=== PATIENT | female | born 1995 | race Caucasian/White ===

== ENCOUNTER 2023-08-26 07:30 | Inpatient (IN) ==
--- NOTE | 2023-08-12 08:49 | Anesthesiology Consultation ---
Date of Service August 12, 2023 Assessment & Plan (1) Encounter for pre-operative examination: - Per dough scaler and mixer on 08/12/23: No known infectious disease contacts, current infectious disease symptoms in past 10 days or COVID positive test result in the past 30 days. 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 History Surgery Operation Date: 08/26/23 08:45 Proposed Procedures p Section (Delivery of Baby Through Abdominal Incision) - Joann Ovalle MD s With Bilateral Tubal Ligation - Joann Ovalle MD Height/Weight Height: 4 ft 10 in Weight: 66.224 kg Allergies Allergy/AdvReac Type Severity Reaction Status Date / Time sertraline AdvReac Intermediate "zoned out" Verified 08/12/23 08:03 Medications Home Medications Medication Instructions Recorded Confirmed Last Taken bupropion HCl 300 mg 24 hr tablet, 300 mg PO QAM 06/26/22 08/12/23 06/22/23 extended release levothyroxine 75 mcg tablet 75 mcg PO DAILYBB 06/26/22 08/12/23 06/22/23 aripiprazole 5 mg tablet 5 mg PO QAM 01/18/23 08/12/23 06/22/23 fluvoxamine 50 mg tablet 50 mg PO DAILY 01/18/23 08/12/23 06/22/23 vit 168-iron 27 mg-folic 1 cap PO DAILY 01/18/23 08/12/23 06/22/23 acid 800 mcg-omega3 235 mg capsule (One-A-Day -1) ondansetron HCl 4 mg tablet 4 mg PO Q6H nausea and vomiting 04/28/23 08/12/23 Unknown #20 tabs amoxicillin 500 mg capsule 500 mg PO BID 08/04/23 08/12/23 Unknown Past Medical History Medical History (Updated 08/12/23 @ 08:44 by Radha Lay PA-C) Anxiety Bipolar disorder Depression History of COVID-08 Feb 2023 Hypothyroidism Past Family History Family History Father Diabetes Past Surgical History Surgical History Hx of section Social History Smoking Status: Former smoker Do You Dip or Chew Tobacco: No Smoking End Date: 8 mos ago Hx Alcohol Use: No Hx Substance Use: No substance use type: does not use Lab Results Anesthesia Preop Results Results Anesthesia Widget: WBC 17.79 K/ul (4.8-10.8) H 06/23/23 Hgb 8.3 g/dl (12.0-16.0) L 06/23/23 Hct 24.6 % (37.0-47.0) L 06/23/23 Plt 330 K/uL (130-400) 06/23/23 PT 10.3 Seconds (9.0-12.0) 06/23/23 PTT 27 Seconds (21-31) 06/23/23 INR 0.9 (0.9-1.1) 06/23/23 Urine Color Yellow 06/23/23 Urine Appearance Cloudy (Clear) A 06/23/23 Urine pH 7.5 (4.5-7.5) 06/23/23 Urine Specific [place] 1.009 (1.000-1.030) 06/23/23 Urine Protein Negative (Negative) 06/23/23 Urine Glucose (UA) Negative (Negative) 06/23/23 Urine Ketones Trace (Negative) H 06/23/23 Urine Blood Negative (Negative) 06/23/23 Urine Nitrite Negative (Negative) 06/23/23 Urine Bilirubin Negative (Negative) 06/23/23 Urine Urobilinogen Negative (Negative) 06/23/23 Urine Leukocyte Esterase Trace (Negative) H 06/23/23 Urine WBC (Auto) 6-10 /hpf (0-5) H 06/23/23 Urine RBC (Auto) 0-2 /hpf (0-2) 06/23/23 Urine Hyaline Casts (Auto) 0-2 /lpf (0-2) 06/23/23 Urine Epithelial Cells (Auto) 3-5 /hpf (0-2) H 06/23/23 Urine Bacteria (Auto) 2+ (None Seen) H 06/23/23
--- NOTE | 2023-08-19 12:58 | History & Physical Report ---
Date of Service August 19, 2023 Assessment & Plan (1) Previous delivery affecting , antepartum: (2) Hypothyroidism during : Plan Discussed indications, risks, benefits, alternatives with risks including infection, bleeding, injury to adjacent structures (bowel, bladder, ureters, blood vessels, nerves, baby), possible need for blood transfusion and/or life saving hysterectomy, VTE. Specifically discussed risk of regret with tubal ligation - pt aware and desires to continue. Consent reviewed in detail w/ pt and signed after all questions answered to her satisfaction. History of Present Illness Chief Complaint: preop Primary Care Provider: Roseanne Haas PA-C 28 yo w/ [place] 08/31 presents for preop to planned repeat CS + BTL on 08/25. 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 G2 SAB G3 current denies hx stis Allergies Allergy/AdvReac Type Severity Reaction Status Date / Time sertraline AdvReac Intermediate "zoned out" Verified 08/19/23 12:02 Home Medications Medication Instructions Recorded Confirmed Type bupropion HCl 300 mg 24 hr tablet, 300 mg PO QAM 06/26/22 08/12/23 History extended release levothyroxine 75 mcg tablet 75 mcg PO DAILYBB 06/26/22 08/12/23 History aripiprazole 5 mg tablet 5 mg PO QAM 01/18/23 08/12/23 History fluvoxamine 50 mg tablet 50 mg PO DAILY 01/18/23 08/12/23 History ondansetron HCl 4 mg tablet 4 mg PO Q6H nausea and vomiting 04/28/23 08/12/23 Rx #20 tabs Patient History Medical History (Updated 08/15/23 @ 12:34 by Ayse Wills) History of COVID-08 Feb 2023 Hypothyroidism Bipolar disorder Depression Anxiety Surgical History (Updated 08/15/23 @ 12:34 by Ayse Wills) Hx of section Family History (System 08/15/23 @ 12:34 by Ayse Wills) Father Diabetes Social History (System 08/15/23 @ 12:34 by Ayse Wills) Smoking Status: Never smoker Tobacco Type: Cigarettes packs per day: 0.5; Second Hand Exposure: No; Do You Dip or Chew Tobacco: No; Hx Alcohol Use: No Hx Substance Use: No Preferred Language: Palauan Communication Ability: Effective Radiology Transporter Required: No Beliefs That Will Affect Care: None marital status: Single marital status details: Ted (24) [phone] Current Living Situation: Significant Other Current Living Situation Comment: Lives with fob and childl, 4 dogs, ferret, lizards current occupational status: employed 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 Feels Safe at Home: Yes Assistive Devices: Glasses Physical Exam Respiratory: normal respiratory effort, lungs clear to auscultation Cardiovascular: RRR, no murmur, no edema Genitourinary: OB Exam Abdomen: + heart tones (150s) Results & Data Laboratory Results OB Labs: Blood Type O Positive 01/20/23 Antibody Screen NEGATIVE 01/20/23 Hemoglobin 9.6 g/dl (12.0-16.0) L 08/12/23 Hematocrit 28.9 % (37.0-47.0) L 08/12/23 Mean Corpuscular Volume 88.7 fL (80.0-100.0) 08/12/23 Platelet Count 223 K/uL (130-400) 08/12/23 Rubella IgG Antibody Immune (Immune) 01/20/23 Rapid Plasma Reagin Nonreactive (Nonreactive) 01/20/23 Hepatitis B Surface Antigen. NON-REACTIVE (NON-REACTIVE) 01/20/23 Hepatitis C Antibody (EIA) NON-REACTIVE (NON-REACTIVE) 01/20/23 HIV (1&2) Ag and Ab Confirmation NON-REACTIVE (NON-REACTIVE) 01/20/23 Glucose 1 Hour 50 gm Load 91 mg/dl (70-130) 06/14/23 OB Optional Labs: Chlamydia trachomatis RNA Not Detected (NotDetected) 01/20/23 Neisseria gonorrhoeae RNA Not Detected (NotDetected) 01/20/23 Thyroid Stimulating Hormone (TSH) 1.630 uIu/ml (0.300-4.500) 02/17/23 Labs Reviewed: cfdna-low risk--mln GBS neg Diagnostic Findings post plac Coding Level of Care Code None Diagnoses Previous delivery affecting , antepartum O34.219 Hypothyroidism during O99.280; E03.9
[2023-08-26] MEDS: LACTATED RINGER'S 1,000 ML IV SCH ×2 (08:40→19:45)
[2023-08-26 10:00] LABS: Basophils # (auto) 0.09 K/uL (0.00-0.20); Basophils % (auto) 0.7 %; Eosinophils % (auto) 1.6 %; Hemoglobin 9.6 g/dl (12.0-16.0); Immature Granulocytes # (auto) 0.12 K/uL (0.01-0.20); Immature Granulocytes % (auto) 0.9 %; Lymphocytes # (auto) 2.41 K/uL (1.20-3.40); Lymphocytes % (auto) 18.9 %; Mean Corpuscular Hemoglobin 28.8 pg (25.0-34.0); Mean Corpuscular Hgb Conc 33.1 g/dL (32.0-36.0); Mean Corpuscular Volume 87.1 fL (80.0-100.0); Mean Platelet Volume 12.7 fL (9.4-12.4); Monocytes # (auto) 0.86 K/uL (0.11-0.59); Monocytes % (auto) 6.7 %; Neutrophils # (auto) 9.07 K/uL (1.40-6.50); Neutrophils % (auto) 71.2 %; Platelet Count 233 K/uL (130-400); RDW Coefficient of Variation 13.2 % (11.5-14.5); Red Blood Count 3.33 M/uL (4.20-5.40); White Blood Count 12.75 K/ul (4.8-10.8)
[2023-08-26] MEDS ORDERED: ONDANSETRON INJ 2 MG/ML 2 ML VIAL ONE (10:39)
[2023-08-26] MEDS ORDERED: OXYTOCIN 10 UNITS/ML VIAL ONE (10:39)
[2023-08-26] MEDS ORDERED: ePHEDrine sulfate 50 MG/5 ML SYR ONE (10:39)
[2023-08-26] MEDS ORDERED: DEXAMETHASONE SOD INJ 4 MG/ML VIAL ONE (10:39)
[2023-08-26] MEDS ORDERED: PHENYLEPHRINE 100MCG/ML 10ML SYR IV ONE (10:39)
[2023-08-26] MEDS ORDERED: KETOROLAC 30 MG/ML VIAL ONE (10:39)
[2023-08-26] MEDS ORDERED: fentaNYL citrate PF 100 MCG/2 ML VIAL ONE (10:40)
[2023-08-26] MEDS ORDERED: MoRPHine SULFATE PF 1 MG/ML 10 ML AMP/VIAL ONE (10:40)
--- NOTE | 2023-08-26 11:01 | History & Physical Bridge Note ---
Date of Service August 26, 2023 History & Physical Bridge Note I have examined the patient, reviewed the History & Physical and in the interval since the performance of the History & Physical I have noted the following changes of clinical significance: no changes noted
[2023-08-26] MEDS: ceFAZolin 2,000 MG in SYRINGE 0 ML IV SCH (11:57)
[2023-08-26] MEDS: CITRIC ACID/SODIUM CITRATE 15 ML UDC PO SCH (11:57)
[2023-08-26] MEDS ORDERED: DC INTRASPINAL MORPHINE SCH (12:15)
[2023-08-26] MEDS ORDERED: ePHEDrine sulfate 50 MG/ML AMP IV PRN (12:15)
[2023-08-26] MEDS ORDERED: NO NARCOTICS OR SEDATIVES SCH (12:15)
[2023-08-26] MEDS ORDERED: NALOXONE HCL 0.4 MG/1 ML VIAL/CARP IV PRN (12:15)
[2023-08-26] MEDS ORDERED: NALBUPHINE HCL 5 MG in SYRINGE 0 ML IV PRN (12:15)
[2023-08-26] MEDS ORDERED: NALOXONE HCL 0.08 MG in SYRINGE 1.8 ML IV PRN (12:15)
[2023-08-26] MEDS ORDERED: NALOXONE HCL 1 MG in SODIUM CHLORIDE 0.9% 1,000 ML IV PRN (12:15)
[2023-08-26] MEDS ORDERED: LACTATED RINGER'S 500 ML IV PRN (12:15)
[2023-08-26] MEDS ORDERED: diphenhydrAMINE 50 MG/ML VIAL IV PRN (12:15)
[2023-08-26] MEDS ORDERED: PROMETHAZINE HCL 6.25 MG in SODIUM CHLORIDE 0.9% 50 ML IV PRN (12:15)
[2023-08-26] MEDS ORDERED: HYDROmorphone INJ 0.5 MG/0.5 ML SYR IV PRN (12:15)
[2023-08-26] MEDS ORDERED: ONDANSETRON INJ 2 MG/ML 2 ML VIAL IV PRN (12:15)
--- NOTE | 2023-08-26 13:21 | Operative Report ---
Post Operative Report Pre & Post Diagnosis Operation Date: 08/26/23 10:15 Pre-Op Diagnosis: Intrauterine at 39 weeks. Desires repeat section. Desires sterilization. Post-Op Diagnosis: Intrauterine at 39 weeks. Desires repeat section. Desires sterilization. Delivery of live male child at 1232. I identified the patient and participated in the time-out.: Yes Procedure Operation Date: 08/26/23 10:15 Actual Procedures p Repeat Low Transverse Section with Bilateral Salpingectomy, delivery of live male child at 1232 - Joann Ovalle MD Surgeon Joann Ovalle MD In Home Sales Consultant MD Soila Quantitative Blood Loss (QBL) 370 Findings Consistent with Post-Op Diagnosis Normal appearing uterus, bilateral fallopian tubes and ovaries. Viable male weighing 7lbs 1oz, APGARs 8 and 9 Fluids 1200cc crystalloid, 100cc clear urine by sierra catheter Specimens Placenta, cord blood, right fallopian tube, left fallopian tube Drains sierra draining clear urine Anesthesia Type Spinal Complications none Disposition Accompanied Patient To Recovery: Yes Disposition: L&D Indications 28 yo at 39 1/7 wga presents for planned repeat CS and tubal ligation Description of Procedure The patient was taken to the operating room after consents were ensured. The patient was properly identified. Spinal anesthesia was obtained without difficu lty. The patient was placed in a dorsal supine position with left lateral tilt, then prepped and draped in normal sterile fashion. Surgical time out was performed. Antibiotics were given for prophylaxis. Anesthesia was tested to ensure adequate surgical levels. Pfannenstiel skin incision was performed and carried down to the underlying fascia with a knife. The fascia was then nicked in the midline and extended laterally with pickups and [place] scissors. Superior portion of the fascia was grasped with Kochers x2 and elevated off the underlying rectus muscles using blunt dissection. Inferior portion of the fascia was then grasped with Van clamps x2 and also elevated off the underlying muscles with blunt dissection. Midline was identified. The peritoneum was then entered and extended to provide adequate room for delivery of baby. A hand was inserted into the abdomen, uterus was noted to be clear of adhesions. Bladder blade was inserted, bladder flap was created in the usual fashion. A low transverse uterine incision was made in the uterus and extended bluntly in a superior to inferior fashion. Amniotomy was made with clear fluid at the time of rupture. head was grasped and elevated through the hysterotomy in an atraumatic fashion. The baby delivered in JAHAIRA position, no nuchal cord. Remainder of the body delivered without incident. Nose and mouth were bulb suctioned on the surgical field. The cord was double clamped and cut, baby was handed off to awaiting pediatrics staff. Cord segment and blood were obtained. Placenta was then expressed from the uterus. The uterus was exteriorized. Several passes were made inside the uterus to remove the remaining membranes. Attention was then turned to the hysterotomy, which was then closed with a running locked suture of 0 Vicryl on a CTX needle. An imbricating layer was then performed using 0-Monocryl. There was noted to be good hemostasis. Attention was turned to the tubal ligation portion of procedure. Right fal lopian tube was followed out to fimbriated end. Ligasure was used to excise the length of tube to cornua and handed off for pathology. There was excellent hemostasis. The same procedure was performed on the contralateral side, there was excellent hemostasis. The posterior cul-de-sac was then inspected and cleaned of clot and debris. The hysterotomy was again inspected and noted to be hemostatic. The uterus was returned to the abdomen. The right and left pericolic gutters were cleaned of all clot and debris. The hysterotomy was again noted to be hemostatic. Space of Retzius was noted to be hemostatic. The fascia was then closed with a running suture of 0 Vicryl on a CT1 needle. Subcutaneous tissue was copiously irrigated and noted to be hemostatic. Subcutaneous tissue was re-approximated using 2-0 plain gut. The skin was then closed with a running suture of 3-0 Monocryl in a subcuticular fashion. At termination of the procedure, fundal pressure was applied and a moderate amount of lochia was expressed. Pressure dressing was applied to the patient. She tolerated the procedure well. All sponge, needle, instrument counts were correct x 2. I attest to the content of the Intraoperative Record and any orders documented therein. Any exceptions are noted below. OB Procedure Charges 94062 [id number] Add on Tubal for C/S
--- NOTE | 2023-08-26 13:21 | Anesthesiology Progress Note ---
Date of Service August 26, 2023 Anesthesia Post Procedure Vital Signs Vital Signs: Temp Pulse Resp BP Pulse Ox 08/26/23 13:18 50 L 129/65 08/26/23 13:17 51 L 98 08/26/23 11:03 65 120/72 08/26/23 08:11 36.7 C 55 L 20 102/59 L 08/26/23 08:10 55 L 102/59 L Transfer of Care Handoff Completed per policy Notes Mental Status: alert / awake / arousable and participated in evaluation Patient Amnestic to Procedure: No Nausea / Vomiting: adequately controlled Pain: adequately controlled Airway Patency, RR, SpO2: stable & adequate BP & HR: stable & adequate Hydration State: stable & adequate Neuraxial Anesthesia: was administered and sensory block is resolving Anesthetic Complications: no major complications apparent and Pt Satisfied with anesthetic care
[2023-08-26] MEDS ORDERED: MAGNESIUM HYDROXIDE SUSP 30 ML UDC PO PRN (15:23)
[2023-08-26] MEDS ORDERED: BENZOCAINE 20% SPRY 85 APPLN/85 GM CAN EXT PRN (15:23)
[2023-08-26] MEDS ORDERED: SENNA 8.6 MG TAB PO PRN (15:23)
[2023-08-26] MEDS ORDERED: HYDROCORTISONE ACETATE 25 MG SUPP PR PRN (15:23)
[2023-08-26] MEDS: OXYTOCIN 20 UNITS/LR 1,002 ML IV SCH (15:27)
[2023-08-26] MEDS ORDERED: SODIUM CHLORIDE 0.9% 250 ML IV PRN (15:40)
[2023-08-26] MEDS: SIMETHICONE 80 MG CHEW PO SCH (19:23)
[2023-08-26] MEDS: MoRPHine SULFATE PF 1 MG/ML 10 ML AMP/VIAL INT SPINAL ONE (19:40)
[2023-08-26] MEDS: SODIUM CHLORIDE 0.9% 1,000 ML IV SCH (19:40)
[2023-08-26] MEDS: DIPHTHER/TETAN/PERTUS Vaccine (Tdap, Adol/Adult) 0.5mL IM ONE (19:45)
[2023-08-26] MEDS: DOCUSATE SODIUM 100 MG CAP PO SCH (20:53)
[2023-08-27] MEDS: KETOROLAC 30 MG/ML VIAL IV PRN (02:12)
[2023-08-27] MEDS ORDERED: diphenhydrAMINE 50 MG/ML VIAL IV PRN (06:16)
[2023-08-27] MEDS ORDERED: diphenhydrAMINE Capsule 25 MG CAP PO PRN (06:16)
[2023-08-27] MEDS ORDERED: KETOROLAC 30 MG/ML VIAL IV PRN (06:16)
[2023-08-27] MEDS ORDERED: PROMETHAZINE HCL 25 MG in SODIUM CHLORIDE 0.9% 50 ML IV PRN (06:16)
--- NOTE | 2023-08-27 07:01 | Obstetrical Progress Note ---
Date of Service August 27, 2023 Assessment & Plan (1) Encounter for care and examination after delivery: POD1 s/p rLTCS/BTL, doing well VSS Rh+, rubella imm continue routine care Subjective Ambulation: limited ambulation (sierra in) Voiding: sierra catheter in place Passing Gas:: Yes Diet Tolerance:: regular diet Lochia:: Small Feeding Type:: breast feeding Pain well managed with medication Review of Systems Denies fevers, chills, n/v, MATUTE, CP, SOB Physical Exam Constitutional WD/WN, vitals as above no acute distress Respiratory normal respiratory effort, lungs clear to auscultation Cardiovascular RRR, no murmur, no edema Gastrointestinal (Abdomen) Percussion/Palpation: abdomen soft; abdomen nontender fundus firm at umbilicus and NT, dressing c//di Musculoskeletal BLE symmetric, nonerythematous, nontender Results & Data Vital Signs (Past 12 Hours) Vital Signs Temp Pulse Resp BP Pulse Ox O2 Del Method 08/27/23 05:10 16 97 08/27/23 04:06 16 96 08/27/23 03:01 98.2 F 70 16 114/71 97 Room Air 08/27/23 02:00 16 97 08/27/23 01:00 16 99 08/27/23 00:00 16 97 08/26/23 22:40 98.2 F 73 18 113/70 98 Room Air 08/26/23 22:00 18 97 08/26/23 20:45 98.2 F 78 18 107/65 97 Room Air 08/26/23 20:00 18 98 08/26/23 19:10 18 99
[2023-08-27] MEDS: LEVOTHYROXINE SODIUM 75 MCG TABLET PO SCH (07:18)
[2023-08-27 08:31] LABS: Hematocrit (blood only) 20.5 % (37.0-47.0); Hemoglobin 6.8 g/dl (12.0-16.0); Mean Corpuscular Hemoglobin 29.3 pg (25.0-34.0); Mean Corpuscular Hgb Conc 33.2 g/dL (32.0-36.0); Mean Corpuscular Volume 88.4 fL (80.0-100.0); Mean Platelet Volume 12.2 fL (9.4-12.4); Platelet Count 206 K/uL (130-400); RDW Coefficient of Variation 13.3 % (11.5-14.5); RDW Standard Deviation 42.7 fL (36.4-46.3); Red Blood Count 2.32 M/uL (4.20-5.40); White Blood Count 18.23 K/ul (4.8-10.8)
[2023-08-27 08:47] LABS: Basophils # (auto) 0.06 K/uL (0.00-0.20); Basophils % (auto) 0.3 %; Eosinophils # (auto) 0.05 K/uL (0.00-0.50); Eosinophils % (auto) 0.3 %; Immature Granulocytes # (auto) 0.13 K/uL (0.01-0.20); Immature Granulocytes % (auto) 0.7 %; Lymphocytes # (auto) 3.29 K/uL (1.20-3.40); Monocytes # (auto) 0.97 K/uL (0.11-0.59); Monocytes % (auto) 5.3 %; Neutrophils # (auto) 13.73 K/uL (1.40-6.50); Neutrophils % (auto) 75.4 %; RBC Morphology Unremarkable
[2023-08-27] MEDS: PRENATAL VITAMIN 1 TAB PO SCH (09:31)
[2023-08-27] MEDS: FERROUS SULFATE 325 MG TAB PO SCH (09:32)
[2023-08-27] MEDS: oxyCODONE/ACETAMINOPHEN 5mg/325mg TAB PO PRN (09:32)
[2023-08-27] MEDS: IBUPROFEN 600 MG TAB PO PRN (09:32)
[2023-08-27] MEDS: fluvoxaMINE MALEATE 50 MG TAB PO SCH (09:34)
[2023-08-27] MEDS: buPROPion XL 300 MG TABCR PO SCH (09:34)
[2023-08-27] MEDS: ARIPiprazole 5 MG TAB PO SCH (09:34)
[2023-08-27] MEDS: ONDANSETRON INJ 2 MG/ML 2 ML VIAL IV PRN (16:00)
[2023-08-27 18:57] LABS: Hematocrit (blood only) 21.5 % (37.0-47.0); Hemoglobin 7.1 g/dl (12.0-16.0); Mean Corpuscular Hemoglobin 29.1 pg (25.0-34.0); Mean Corpuscular Volume 88.1 fL (80.0-100.0); Mean Platelet Volume 11.5 fL (9.4-12.4); Platelet Count 249 K/uL (130-400); RDW Coefficient of Variation 13.4 % (11.5-14.5); RDW Standard Deviation 42.6 fL (36.4-46.3); Red Blood Count 2.44 M/uL (4.20-5.40); White Blood Count 15.68 K/ul (4.8-10.8)
[2023-08-27] MEDS: bisacodyL 5 MG TABEC PO SCH (20:54)
[2023-08-28 07:10] LABS: Hematocrit (blood only) 21.5 % (37.0-47.0); Hemoglobin 7.1 g/dl (12.0-16.0)
--- NOTE | 2023-08-28 08:58 | Obstetrical Progress Note ---
Date of Service August 28, 2023 Assessment & Plan (1) Encounter for care and examination after delivery: Postoperative from section patient meets discharge criteria as she is ambulating well tolerating an oral diet has minimal bleeding and no extremity pain. Discharge instructions were reviewed and prescriptions were sent to her pharmacy of choice patient advised to call with any concerns and follow-up in the office discussed Incision clean dry and intact extremity exam negative Subjective Ambulation: ambulating normally Voiding: no voiding problems Passing Gas:: Yes Diet Tolerance:: regular diet Lochia:: Small Feeding Type:: breast feeding Physical Exam Constitutional WD/WN, vitals as above well developed and well nourished Respiratory normal respiratory effort, lungs clear to auscultation normal respiratory effort Cardiovascular RRR, no murmur, no edema Gastrointestinal (Abdomen) normal bowel sounds, soft, nontender, no hepatosplenomegaly Results & Data Vital Signs (Past 12 Hours) Vital Signs Temp Pulse Resp BP O2 Del Method 08/28/23 07:30 98.4 F 69 16 123/77 Room Air 08/27/23 23:15 98.6 F 75 14 97/65 L Room Air
[2023-08-28] MEDS ORDERED: bisacodyL 10 MG SUPP PR PRN (14:47)
== END 2023-08-28 11:25 | disposition home health service (06) | DRG 785 ==
LOC: 4S1 07:59 → MERGE 08:45 → 4E2 16:20 → EDSTATUS 08-29 08:50
PROC: M.PPTLD (2023-08-26 10:15)
DX: O99.344 Other mental disorders complicating childbirth; Z3A.39 39 weeks gestation of pregnancy; Z37.0 Single live birth; E03.9 Hypothyroidism, unspecified; O99.284 Endocrine, nutritional and metabolic diseases complicating childbirth; Z79.890 Hormone replacement therapy; Z30.2 Encounter for sterilization; O34.211 Maternal care for low transverse scar from previous cesarean delivery; Z79.899 Other long term (current) drug therapy; F31.9 Bipolar disorder, unspecified; F41.9 Anxiety disorder, unspecified; Z86.16 Personal history of COVID-19